=== PATIENT | male | born 1955 | race Caucasian/White ===

== ENCOUNTER 2025-01-02 09:58 | Outpatient (CLI) | payer BC | END 2025-01-02 09:59 | disposition home or self-care (01) | LOC: CSHSLEEP 09:58 | PROVIDERS: ATTEND Internal Medicine | DX: G47.33 Obstructive sleep apnea (adult) (pediatric) (principal); R53.83 Other fatigue; R06.83 Snoring; I11.9 Hypertensive heart disease without heart failure; G47.61 Periodic limb movement disorder | CPT/HCPCS: 95810 ==

== ENCOUNTER 2025-03-03 08:04 | Outpatient (CLI) | payer BC ==
[2025-03-03 09:01] LABS: #Basophils 0.05 10x3/uL (0.0-0.2); #Eosinophils 0.35 10x3/uL (0.0-0.5); #Monocytes 1.09 10x3/uL (0.0-1.1); #Neutrophils 4.45 10x3/uL (1.5-8.4); %Basophils 0.6 % (0.0-2.0); %Eosinophils 4.4 % (0.0-6.0); %Lymphocytes 25.1 % (18.0-47.0); %Monocytes 13.7 % (0.0-10.0); %Neutrophils 55.8 % (40.0-75.0); Hematocrit 43.5 % (38.8-50.0); Hemoglobin 14.5 g/dL (13.5-17.5); Mean Corpuscular Hemoglobin 30.4 pg (27.0-33.0); Mean Corpuscular Volume 91.2 fL (81.2-95.1); Platelet Count 251 10x3/uL (150-450); Red Blood Cell (RBC) Count 4.77 10x6/uL (4.32-5.72); White Blood Cell (WBC) Count 7.97 10x3/uL (3.5-10.5)
[2025-03-03 09:23] LABS: Anion Gap 12 mmol/L (10-20); BUN (Urea Nitrogen) 15 mg/dL (8.4-25.7); Calc. Creatinine Clearance 0 mL/min (70-130); Calcium 9.2 mg/dL (7.8-10.44); Carbon Dioxide 24 mmol/L (23-31); Chloride 108 mmol/L (98-107); Glucose 119 mg/dL (80-115); Potassium 4.4 mmol/L (3.5-5.1); Sodium 140 mmol/L (136-145)
== END 2025-03-03 08:05 | disposition home or self-care (01) ==
LOC: CSHLAB 08:04
PROVIDERS: ATTEND Specialist
DX: Z01.818 Encounter for other preprocedural examination (principal); K40.91 Unilateral inguinal hernia, without obstruction or gangrene, recurrent
CPT/HCPCS: 71046; 80048; 85025; 93005; 93010

== ENCOUNTER 2025-03-09 05:54 | Day surgery (SDC) | payer BC ==
[2025-03-03 08:39] VITALS: BMI 29.8
[2025-03-09] MEDS ORDERED: Ketorolac Tromethamine 30 MG (1 mL) VIAL ONE (06:46)
[2025-03-09] MEDS ORDERED: Acetaminophen 500 MG TAB ONE (06:47)
[2025-03-09] MEDS ORDERED: Bupivacaine/Epinephrine 0.25% 30 ML VIAL ONE (06:53)
[2025-03-09] MEDS ORDERED: CEFAZOLIN 2 GM VIAL ONE (06:53)
[2025-03-09] MEDS ORDERED: PROPOFOL 20 ML ONE (07:10)
[2025-03-09] MEDS ORDERED: Rocuronium Bromide 10 MG/ML (10ML VIAL) ONE (07:11)
[2025-03-09] MEDS ORDERED: Lidocaine 1% PF 5 ML VIAL ONE (07:12)
[2025-03-09] MEDS ORDERED: Ondansetron PF 4 MG/2 ML Vial ONE (08:20)
[2025-03-09] MEDS ORDERED: HYDROcodone/Acetaminophen 5/325 mg Tablet ONE (10:29)
== END 2025-03-09 11:25 | disposition home or self-care (01) ==
LOC: CSHSDC 05:54
PROVIDERS: ATTEND Specialist
PROC: 0YQ54ZZ Repair Right Inguinal Region, Percutaneous Endoscopic Approach (ICD-10-PCS; principal; 2025-03-09)
DX: K40.91 Unilateral inguinal hernia, without obstruction or gangrene, recurrent (principal); E78.5 Hyperlipidemia, unspecified; Z79.899 Other long term (current) drug therapy
CPT/HCPCS: C1781; J1100; J1885; J2405; J2704; J3010; S2900